=== PATIENT | male | born 1950 | race Caucasian/White ===

== ENCOUNTER 2017-09-29 01:50 | Inpatient (IN) | payer OTHER ==
[2017-09-29 05:44] LABS: ADD MAN DIFF? NO
[2017-09-29 06:07] LABS: ALANINE AMINOTRANSFERASE 36 IU/L (13-69); ALBUMIN 3.7 g/dl (3.3-4.9); ALBUMIN/GLOBULIN RATIO 1.12; ALKALINE PHOSPHATASE 102 IU/L (42-121); ANION GAP 16 (8-16); ASPARTATE AMINO TRANSFERASE 49 IU/L (15-46); BILIRUBIN,INDIRECT 0.2 mg/dl (0-1.1); BILIRUBIN,TOTAL 0.2 mg/dl (0.2-1.3); BLOOD UREA NITROGEN 39 mg/dl (7-20); CARBON DIOXIDE 27 mmol/L (21-31); CHLORIDE 107 mmol/L (97-110); CREATININE 1.27 mg/dl (0.61-1.24); GLUCOSE 75 mg/dl (70-220); POTASSIUM 4.8 mmol/L (3.5-5.1); SODIUM 145 mmol/L (135-144)
[2017-09-29 06:08] LABS: BASOPHILS % 0.5 % (0.0-2.0); EOSINOPHILS # 0.2 10^3/ul (0.0-0.5); HEMATOCRIT 34.4 % (42.0-52.0); HEMOGLOBIN 11.2 g/dl (14.0-18.0); LYMPHOCYTES # 2.5 10^3/ul (0.8-2.9); LYMPHOCYTES % 40.8 % (15.0-51.0); MEAN CORPUSCULAR HEMOGLOBIN 30.6 pg (29.0-33.0); MEAN CORPUSCULAR HGB CONC 32.6 g/dl (32.0-37.0); MEAN PLATELET VOLUME 10.6 fl (7.4-10.4); MONOCYTE # 0.7 10^3/ul (0.3-0.9); MONOCYTES % 11.8 % (0.0-11.0); NEUTROPHIL # 2.6 10^3/ul (1.6-7.5); NEUTROPHILS % 42.7 % (39.0-77.0); PLATELET COUNT 186 10^3/UL (140-415); RED BLOOD COUNT 3.66 10^6/ul (4.70-6.10)
[2017-09-29 06:13] LABS: INR 0.94; PROTIME 12.7 Sec (11.9-14.9)
[2017-09-29] MEDS ORDERED: NITROGLYCERIN (SL) 0.4 MG TAB SL ×2 (06:30→09:30)
[2017-09-29] MEDS: ASPIRIN 81 MG TAB PO (06:36)
[2017-09-29] MEDS: ENOXAPARIN 80 MG/0.8 ML SYG SC ×2 (06:37→21:32)
[2017-09-29] MEDS: NITROGLYCERIN 2% 1 GM OINT PKT TD (06:37)
[2017-09-29] MEDS ORDERED: ACETAMINOPHEN 325 MG TAB PO (07:00)
[2017-09-29] MEDS ORDERED: ONDANSETRON 4 MG INJ IV (07:00)
[2017-09-29] MEDS ORDERED: morphine 2 MG INJ IV (09:30)
[2017-09-29 09:57] LABS: MAGNESIUM 1.8 mg/dl (1.7-2.5)
[2017-09-29] MEDS ORDERED: GLUCAGON 1 MG INJ IM (10:00)
[2017-09-29] MEDS ORDERED: DEXTROSE 50% 50 ML SYRINGE IV ×2 (10:00)
[2017-09-29] MEDS ORDERED: GLUCOSE GEL 15 GRAM TUBE BUCCAL (10:00)
[2017-09-29] MEDS ORDERED: GLUCOSE GEL 15 GRAM TUBE PO ×2 (10:00)
[2017-09-29] MEDS ORDERED: morphine LIQ (10 MG/5 ML) CUP PO (10:13)
[2017-09-29] MEDS: SOD CHLORIDE 0.9% 1,000 ML IV ×2 (10:18→23:14)
[2017-09-29] MEDS: INSULIN ASPART [NOVOLOG] 3 ML PEN SC ×3 (13:00→21:33)
[2017-09-29] MEDS: FOLIC ACID 1 MG TAB PO (15:41)
[2017-09-29] MEDS: metFORMIN 500 MG TAB PO (19:30)
[2017-09-29 19:43] LABS: AMPHETAMINE/METHAMPHETAMINE Negative (NEGATIVE); BARBITURATES Negative (NEGATIVE); BENZODIAZEPINES Negative (NEGATIVE); CANNABINOIDS Negative (NEGATIVE); COCAINE Negative (NEGATIVE); OPIATES Negative (NEGATIVE)
[2017-09-29] MEDS ORDERED: ENOXAPARIN 100 MG/ML SYG SC (21:00)
[2017-09-29] MEDS: FLUTICASONE 0.05% 16 GM NAS SPRAY NASAL (21:29)
[2017-09-29] MEDS: RANITIDINE 150 MG TAB PO (21:33)
[2017-09-29] MEDS: ATORVASTATIN 20 MG TAB PO (21:33)
[2017-09-29 21:34] LABS: CREATINE KINASE 386 IU/L (23-200)
[2017-09-29 21:56] LABS: CK INDEX 5.1
[2017-09-30] MEDS: INSULIN ASPART [NOVOLOG] 3 ML PEN SC ×3 (02:30→09:00)
[2017-09-30] MEDS: ACCU-CHEK XX (02:50)
[2017-09-30 04:03] LABS: CREATINE KINASE 313 IU/L (23-200)
[2017-09-30 04:16] LABS: CK INDEX 5.1
[2017-09-30 07:04] LABS: ADD MAN DIFF? NO
[2017-09-30 07:05] LABS: BASOPHILS % 0.6 % (0.0-2.0); EOSINOPHILS # 0.2 10^3/ul (0.0-0.5); EOSINOPHILS % 4.5 % (0.0-7.0); HEMATOCRIT 32.6 % (42.0-52.0); HEMOGLOBIN 10.8 g/dl (14.0-18.0); LYMPHOCYTES # 2.1 10^3/ul (0.8-2.9); LYMPHOCYTES % 40.5 % (15.0-51.0); MEAN CORPUSCULAR HEMOGLOBIN 30.8 pg (29.0-33.0); MEAN CORPUSCULAR HGB CONC 33.1 g/dl (32.0-37.0); MEAN CORPUSCULAR VOLUME 92.9 fl (82.0-101.0); MEAN PLATELET VOLUME 10.7 fl (7.4-10.4); MONOCYTE # 0.5 10^3/ul (0.3-0.9); MONOCYTES % 10.4 % (0.0-11.0); NEUTROPHIL # 2.2 10^3/ul (1.6-7.5); NEUTROPHILS % 43.8 % (39.0-77.0); PLATELET COUNT 176 10^3/UL (140-415); RED BLOOD COUNT 3.51 10^6/ul (4.70-6.10)
[2017-09-30 07:05] LABS: WHITE BLOOD COUNT 5.1 10^3/ul (4.8-10.8)
[2017-09-30 07:26] LABS: INR 1.02; PROTIME 13.5 Sec (11.9-14.9); PT RATIO 1.1
[2017-09-30 07:27] LABS: ANION GAP 11 (8-16); BLOOD UREA NITROGEN 24 mg/dl (7-20); CARBON DIOXIDE 28 mmol/L (21-31); CHLORIDE 108 mmol/L (97-110); CHOL/HDL RATIO 3.8 RATIO; CHOLESTEROL 112 mg/dl (100-200); CREATININE 0.92 mg/dl (0.61-1.24); GLUCOSE 124 mg/dl (70-220); HDL CHOLESTEROL 29 mg/dl (30-78); LDL CHOLESTEROL,CALCULATED 51 mg/dl; PARTIAL THROMBOPLASTIN TIME 54.7 Sec (25.0-35.0); SODIUM 143 mmol/L (135-144); TRIGLYCERIDES 159 mg/dl (0-149)
[2017-09-30 07:30] LABS: CREATINE KINASE 273 IU/L (23-200)
[2017-09-30 07:31] LABS: HEMOGLOBIN A1C 5.9 % (0-5.9)
[2017-09-30] MEDS: metFORMIN 500 MG TAB PO (07:35)
[2017-09-30 07:38] LABS: CK INDEX 4.8
[2017-09-30] MEDS: DEXTROSE 5%-0.45% NACL 1,000 ML IV (07:46)
[2017-09-30] MEDS: FLUTICASONE 0.05% 16 GM NAS SPRAY NASAL ×2 (10:32→21:36)
[2017-09-30] MEDS: ENOXAPARIN 80 MG/0.8 ML SYG SC ×2 (10:34→22:51)
[2017-09-30] MEDS: FOLIC ACID 1 MG TAB PO (10:35)
[2017-09-30] MEDS: CYANOCOBALAMIN 500 MCG TAB PO (10:35)
[2017-09-30] MEDS: RANITIDINE 150 MG TAB PO ×2 (10:36→21:36)
[2017-09-30] MEDS: ASPIRIN (EC) 81 MG TAB PO (10:36)
[2017-09-30] MEDS: SOD CHLORIDE 0.9% 1,000 ML IV (11:47)
[2017-09-30] MEDS: LORATADINE 10 MG TAB PO (11:54)
[2017-09-30] MEDS: BENAZEPRIL 20 MG TAB PO (11:55)
[2017-09-30] MEDS: FUROSEMIDE 20 MG INJ IV (12:00)
[2017-09-30] MEDS: ATORVASTATIN 20 MG TAB PO (21:36)
[2017-10-01 06:48] LABS: ADD MAN DIFF? NO
[2017-10-01 06:51] LABS: BASOPHILS % 0.7 % (0.0-2.0); EOSINOPHILS # 0.2 10^3/ul (0.0-0.5); EOSINOPHILS % 4.9 % (0.0-7.0); HEMATOCRIT 32.1 % (42.0-52.0); HEMOGLOBIN 10.6 g/dl (14.0-18.0); LYMPHOCYTES # 2.2 10^3/ul (0.8-2.9); LYMPHOCYTES % 51.6 % (15.0-51.0); MEAN CORPUSCULAR HEMOGLOBIN 30.3 pg (29.0-33.0); MEAN CORPUSCULAR VOLUME 91.7 fl (82.0-101.0); MEAN PLATELET VOLUME 10.5 fl (7.4-10.4); MONOCYTE # 0.6 10^3/ul (0.3-0.9); MONOCYTES % 13.7 % (0.0-11.0); NEUTROPHIL # 1.2 10^3/ul (1.6-7.5); NEUTROPHILS % 28.9 % (39.0-77.0); PLATELET COUNT 167 10^3/UL (140-415); RED CELL DISTRIBUTION WIDTH 13.7 % (11.5-14.5)
[2017-10-01 06:51] LABS: WHITE BLOOD COUNT 4.3 10^3/ul (4.8-10.8)
[2017-10-01 08:08] LABS: ANION GAP 13 (8-16); CARBON DIOXIDE 27 mmol/L (21-31); CHLORIDE 108 mmol/L (97-110); POTASSIUM 3.9 mmol/L (3.5-5.1); SODIUM 144 mmol/L (135-144)
[2017-10-01 08:09] LABS: BLOOD UREA NITROGEN 18 mg/dl (7-20); CREATININE 0.93 mg/dl (0.61-1.24); GLUCOSE 120 mg/dl (70-220)
[2017-10-01] MEDS: RANITIDINE 150 MG TAB PO ×2 (09:10→20:26)
[2017-10-01] MEDS: FLUTICASONE 0.05% 16 GM NAS SPRAY NASAL ×2 (09:10→20:26)
[2017-10-01] MEDS: ASPIRIN (EC) 81 MG TAB PO (09:10)
[2017-10-01] MEDS: LORATADINE 10 MG TAB PO (09:10)
[2017-10-01] MEDS: CYANOCOBALAMIN 500 MCG TAB PO (09:11)
[2017-10-01] MEDS: FOLIC ACID 1 MG TAB PO (09:11)
[2017-10-01] MEDS: BENAZEPRIL 20 MG TAB PO (09:12)
[2017-10-01] MEDS: ENOXAPARIN 80 MG/0.8 ML SYG SC ×2 (09:27→21:05)
[2017-10-01] MEDS: INSULIN ASPART [NOVOLOG] 3 ML PEN SC ×3 (12:45→20:54)
[2017-10-01] MEDS: ATORVASTATIN 20 MG TAB PO (20:26)
[2017-10-02] MEDS: ACCU-CHEK XX (02:40)
[2017-10-02 07:00] LABS: ADD MAN DIFF? NO
[2017-10-02 07:05] LABS: BASOPHILS % 0.6 % (0.0-2.0); EOSINOPHILS # 0.2 10^3/ul (0.0-0.5); EOSINOPHILS % 4.5 % (0.0-7.0); HEMATOCRIT 32.5 % (42.0-52.0); HEMOGLOBIN 10.9 g/dl (14.0-18.0); LYMPHOCYTES # 2.4 10^3/ul (0.8-2.9); LYMPHOCYTES % 46.2 % (15.0-51.0); MEAN CORPUSCULAR HEMOGLOBIN 30.6 pg (29.0-33.0); MEAN CORPUSCULAR HGB CONC 33.5 g/dl (32.0-37.0); MEAN CORPUSCULAR VOLUME 91.3 fl (82.0-101.0); MEAN PLATELET VOLUME 10.6 fl (7.4-10.4); MONOCYTE # 0.7 10^3/ul (0.3-0.9); NEUTROPHIL # 1.8 10^3/ul (1.6-7.5); NEUTROPHILS % 34.5 % (39.0-77.0); PLATELET COUNT 170 10^3/UL (140-415); RED BLOOD COUNT 3.56 10^6/ul (4.70-6.10); RED CELL DISTRIBUTION WIDTH 13.7 % (11.5-14.5)
[2017-10-02 07:05] LABS: WHITE BLOOD COUNT 5.2 10^3/ul (4.8-10.8)
[2017-10-02 07:41] LABS: ANION GAP 14 (8-16); BLOOD UREA NITROGEN 20 mg/dl (7-20); CALCIUM 8.9 mg/dl (8.4-10.2); CARBON DIOXIDE 28 mmol/L (21-31); CHLORIDE 107 mmol/L (97-110); CREATININE 0.85 mg/dl (0.61-1.24); GLUCOSE 124 mg/dl (70-220); POTASSIUM 3.9 mmol/L (3.5-5.1); SODIUM 145 mmol/L (135-144)
[2017-10-02] MEDS: INSULIN ASPART [NOVOLOG] 3 ML PEN SC ×4 (07:55→20:46)
[2017-10-02] MEDS: ASPIRIN (EC) 81 MG TAB PO (09:16)
[2017-10-02] MEDS: INFLUENZA VIRUS VACCINE 0.5 ML (DISPENSING) IM* (09:16)
[2017-10-02] MEDS: FLUTICASONE 0.05% 16 GM NAS SPRAY NASAL ×2 (09:17→20:33)
[2017-10-02] MEDS: RANITIDINE 150 MG TAB PO ×2 (09:17→20:34)
[2017-10-02] MEDS: BENAZEPRIL 20 MG TAB PO (09:17)
[2017-10-02] MEDS: METOPROLOL 25 MG TAB PO ×2 (10:30→20:35)
[2017-10-02] MEDS ORDERED: MIDAZOLAM 1 MG/ML 2 ML INJ (10:41)
[2017-10-02] MEDS ORDERED: LIDOCAINE 1% (MDV) 20 ML INJ (10:41)
[2017-10-02] MEDS ORDERED: NITROGLYCERIN (IC) 100 MCG/ML INJ (10:41)
[2017-10-02] MEDS ORDERED: HEPARIN 1000 UNITS/ML 10 ML INJ (10:41)
[2017-10-02] MEDS ORDERED: VERAPAMIL 5 MG INJ (10:41)
[2017-10-02] MEDS ORDERED: IODIXANOL LOCM 100 ML BTL (10:41)
[2017-10-02] MEDS ORDERED: SOD CHLORIDE 0.9% 500 ML (10:42)
[2017-10-02] MEDS ORDERED: FENTAnyl 50 MCG/ML VIAL (10:42)
[2017-10-02] MEDS ORDERED: morphine 2 MG INJ IV (12:30)
[2017-10-02] MEDS ORDERED: ONDANSETRON 4 MG INJ IV (12:30)
[2017-10-02] MEDS ORDERED: ACETAMINOPHEN 325 MG TAB PO (12:30)
[2017-10-02] MEDS ORDERED: AL HYDROX/MG HYDROX/SIMETH 30 ML CUP PO (12:30)
[2017-10-02] MEDS: ATORVASTATIN 20 MG TAB PO (20:33)
[2017-10-03] MEDS: ACCU-CHEK XX (02:45)
[2017-10-03] MEDS: METOPROLOL 25 MG TAB PO ×2 (08:52→20:35)
[2017-10-03] MEDS: INSULIN ASPART [NOVOLOG] 3 ML PEN SC ×6 (09:00→20:49)
[2017-10-03] MEDS: FLUTICASONE 0.05% 16 GM NAS SPRAY NASAL ×2 (09:02→20:29)
[2017-10-03] MEDS: RANITIDINE 150 MG TAB PO ×2 (09:03→20:36)
[2017-10-03] MEDS: ASPIRIN (EC) 81 MG TAB PO (09:03)
[2017-10-03] MEDS: BENAZEPRIL 20 MG TAB PO (13:50)
[2017-10-03] MEDS: ATORVASTATIN 20 MG TAB PO (20:34)
[2017-10-03] MEDS: INSULIN GLARGINE [LANtus] 3 ML PEN SC (20:46)
[2017-10-04] MEDS: ACCU-CHEK XX (02:00)
[2017-10-04] MEDS: INSULIN ASPART [NOVOLOG] 3 ML PEN SC ×7 (07:53→21:00)
[2017-10-04] MEDS: FLUTICASONE 0.05% 16 GM NAS SPRAY NASAL ×2 (09:00→21:17)
[2017-10-04] MEDS: ASPIRIN (EC) 81 MG TAB PO (09:14)
[2017-10-04] MEDS: RANITIDINE 150 MG TAB PO ×2 (09:16→21:22)
[2017-10-04] MEDS: METOPROLOL 25 MG TAB PO ×2 (09:16→21:00)
[2017-10-04] MEDS: BENAZEPRIL 20 MG TAB PO (09:17)
[2017-10-04] MEDS: ATORVASTATIN 20 MG TAB PO (21:17)
[2017-10-04] MEDS: INSULIN GLARGINE [LANtus] 3 ML PEN SC (21:29)
[2017-10-05] MEDS: ACCU-CHEK XX (02:00)
[2017-10-05] MEDS ORDERED: THROMBIN 5000 UNIT VIAL ×2 (07:09→12:00)
[2017-10-05] MEDS ORDERED: INSULIN HUMAN REGULAR 100 UNIT in SOD CHLORIDE 0.9% 99 ML IV (07:30)
[2017-10-05] MEDS ORDERED: PHENYLephrine 20MG IN 250 ML 250 ML IV (07:30)
[2017-10-05] MEDS ORDERED: EPINEPHrine 4 MG in DEXTROSE 5% 246 ML IV (07:30)
[2017-10-05] MEDS ORDERED: MIDAZOLAM 5 ML ×4 (07:43→13:20)
[2017-10-05] MEDS ORDERED: PHENYLephrine (100 MCG/ML) 5ML SYG ×2 (07:46→09:37)
[2017-10-05] MEDS: INSULIN ASPART [NOVOLOG] 3 ML PEN SC ×2 (07:55)
[2017-10-05] MEDS: BENAZEPRIL 20 MG TAB PO (08:02)
[2017-10-05] MEDS: FLUTICASONE 0.05% 16 GM NAS SPRAY NASAL (08:02)
[2017-10-05] MEDS: ASPIRIN (EC) 81 MG TAB PO (08:02)
[2017-10-05] MEDS: METOPROLOL 25 MG TAB PO (08:02)
[2017-10-05] MEDS: RANITIDINE 150 MG TAB PO (08:03)
[2017-10-05] MEDS ORDERED: POTASSIUM CHLORIDE 40 MEQ INJ (08:21)
[2017-10-05] MEDS ORDERED: MAGNESIUM SULFATE (MG) 50% 10 ML INJ (08:22)
[2017-10-05] MEDS ORDERED: LIDOCAINE 100 MG SYRINGE ×2 (08:22→08:50)
[2017-10-05] MEDS ORDERED: POTASSIUM CHLORIDE 100 ML (08:33)
[2017-10-05] MEDS ORDERED: AMINOCAPROIC ACID 5 GM INJ ×4 (08:33→12:14)
[2017-10-05] MEDS ORDERED: ALBUMIN HUMAN 5% 250 ML (08:33)
[2017-10-05] MEDS ORDERED: CEFAZOLIN 1 GM INJ ×2 (08:33→12:14)
[2017-10-05] MEDS ORDERED: FUROSEMIDE 20 MG INJ ×3 (08:34→14:39)
[2017-10-05] MEDS ORDERED: ALBUMIN HUMAN 25% 200 ML (08:36)
[2017-10-05] MEDS ORDERED: HEPARIN 1000 UNITS/ML 10 ML INJ ×4 (08:37→14:19)
[2017-10-05] MEDS ORDERED: NA BICARBONATE 8.4% 50 ML SYG (08:47)
[2017-10-05] MEDS ORDERED: MANNITOL 20% 250 ML IV (08:48)
[2017-10-05] MEDS ORDERED: CA CHLORIDE 10% 10 ML SYRINGE (08:49)
[2017-10-05] MEDS: VANCOMYCIN 1 GM INJ (08:52)
[2017-10-05] MEDS: HEPARIN 1000 UNITS/ML 10 ML INJ (08:52)
[2017-10-05] MEDS: PAPAVERINE 60 MG INJ (08:52)
[2017-10-05] MEDS ORDERED: PHENYLephrine 10 MG INJ (09:16)
[2017-10-05 13:01] LABS: IMMEDIATE SPIN CROSSMATCH 1 8
[2017-10-05 13:01] LABS: TYPE AND SCREEN 1
[2017-10-05] MEDS ORDERED: NORepinephrine 4 MG INJ (13:25)
[2017-10-05] MEDS ORDERED: PROTAMINE 250 MG INJ (13:55)
[2017-10-05] MEDS ORDERED: POVIDONE IODINE 10% 28.4 GM OINT (14:51)
[2017-10-05 15:07] LABS: IMMEDIATE SPIN CROSSMATCH 1
[2017-10-05] MEDS ORDERED: AMIODARONE 150 MG INJ (15:28)
[2017-10-05] MEDS ORDERED: ETOMIDATE 20 MG INJ (15:43)
[2017-10-05] MEDS ORDERED: LIDOCAINE 2% (SDV) 5 ML INJ (15:43)
[2017-10-05] MEDS ORDERED: ROCURONIUM 50 MG INJ (15:44)
== END 2017-10-05 20:00 | disposition expired | DRG 234 ==
LOC: TEL 09-30 23:23 → E/R 01:50 → ICU 10-05 09:50 → MS3 07:01
PROC: 021209W Bypass Coronary Artery, Three Arteries from Aorta with Autologous Venous Tissue, Open Approach (ICD-10-PCS; principal; 2017-10-02 10:22)
PROC: 4A023N7 Measurement of Cardiac Sampling and Pressure, Left Heart, Percutaneous Approach (ICD-10-PCS; 2017-10-02 10:22)
PROC: 5A02210 Assistance with Cardiac Output using Balloon Pump, Continuous (ICD-10-PCS; 2017-10-02 10:22)
PROC: 02100Z9 Bypass Coronary Artery, One Artery from Left Internal Mammary, Open Approach (ICD-10-PCS; 2017-10-02 10:22)
PROC: 02QA0ZZ Repair Heart, Open Approach (ICD-10-PCS; 2017-10-02 10:22)
PROC: 06BQ0ZZ Excision of Left Saphenous Vein, Open Approach (ICD-10-PCS; 2017-10-02 10:22)
PROC: 5A1221Z Performance of Cardiac Output, Continuous (ICD-10-PCS; 2017-10-02 10:22)
PROC: B211YZZ Fluoroscopy of Multiple Coronary Arteries using Other Contrast (ICD-10-PCS; 2017-10-02 10:22)
PROC: 30233K1 Transfusion of Nonautologous Frozen Plasma into Peripheral Vein, Percutaneous Approach (ICD-10-PCS; 2017-10-02 10:22)
PROC: 30233N1 Transfusion of Nonautologous Red Blood Cells into Peripheral Vein, Percutaneous Approach (ICD-10-PCS; 2017-10-02 10:22)
PROC: 30233R1 Transfusion of Nonautologous Platelets into Peripheral Vein, Percutaneous Approach (ICD-10-PCS; 2017-10-02 10:22)
DX: I21.4 Non-ST elevation (NSTEMI) myocardial infarction (principal); N17.9 Acute kidney failure, unspecified; I50.32 Chronic diastolic (congestive) heart failure; E11.8 Type 2 diabetes mellitus with unspecified complications; I97.710 Intraoperative cardiac arrest during cardiac surgery; J44.9 Chronic obstructive pulmonary disease, unspecified; I10 Essential (primary) hypertension; I25.10 Atherosclerotic heart disease of native coronary artery without angina pectoris; E78.5 Hyperlipidemia, unspecified; Z79.4 Long term (current) use of insulin; Y83.2 Surgical operation with anastomosis, bypass or graft as the cause of abnormal reaction of the patient, or of later complication, without mention of misadventure at the time of the procedure; Y92.234 Operating room of hospital as the place of occurrence of the external cause
CPT/HCPCS: 36415; 36430; 71010; 80048; 80053; 80061; 80307; 82550; 82553; 82962; 83036; 83735; 84484; 85025; 85610; 85730; 86850; 86900; 86901; 86920; 90686; 93005; 93306; 93312; 93458; 93880; 96372; 99291-25; J1940